=== PATIENT | male | born 1940 | race Caucasian/White ===

== ENCOUNTER 2018-01-06 08:50 | Day surgery (SDC) | payer OTHER, BC ==
[~2018-01-06] VITALS: Ht 180.3 cm; Wt 87.5 kg
[~2018-01-06 08:50] MED LIST: B-100 COMPLEX100 MG PO; FLOMAX0.4 MG PO; LO-DOSE ASPIRIN81 M2 PO; METAMUCIL PACK3.4 GM PO; OMEGA 3 500 SO1 EACH PO; ONCE DAILY1 EACH PO; POTASSIUM CITRA5 MEQ PO; PRINIVIL20 MG PO; PROZAC20 MG PO; TURMERIC 450-51 EACH PO; VITAMIN D31000 UNIT PO; VITAMIN E200 UNI2 PO; ZYLOPRIM300 MG PO
[2018-01-06 10:08] VITALS: BP 125/60
[2018-01-06 14:15] VITALS: BP 130/65
[2018-01-06 15:22] VITALS: BP 142/67
[2018-01-06 17:30] VITALS: BP 135/63
[2018-01-06 19:57] VITALS: BP 149/67
== END 2018-01-06 20:05 | disposition home or self-care (01) ==
LOC: SDC 08:50
PROC: 0T778DZ Dilation of Left Ureter with Intraluminal Device, Via Natural or Artificial Opening Endoscopic (ICD-10-PCS; principal; 2018-01-06)
DX: N13.1 Hydronephrosis with ureteral stricture, not elsewhere classified (principal); I10 Essential (primary) hypertension; G47.30 Sleep apnea, unspecified; Z87.891 Personal history of nicotine dependence; Z79.82 Long term (current) use of aspirin
CPT/HCPCS: 88305; C1769; C2625; J0690; J1100; J2250; J2405; J7643